=== PATIENT | male | born 1950 | race Caucasian/White ===

== ENCOUNTER → 2017-10-04 | Outpatient (CLI) | payer MEDICARE, BC, OTHER ==
[2015-08-07 10:50] VITALS: BP 120/72
[~2017-10-04] MED LIST: IBU800 M1 PO; LEVOTHROID0.125 MG PO; OMEPRAZOLE20 MG PO; PLAVIX 75MG TAB75 MG PO; TERAZOSIN HCL2 M1 PO; ULTRAM50 MG PO
== END ==
LOC: RAD 09:53
DX: R22.31 Localized swelling, mass and lump, right upper limb (principal)

== ENCOUNTER → 2019-02-06 | Outpatient (CLI) | payer MEDICARE, BC, OTHER ==
[2015-08-07 10:50] VITALS: BP 120/72
== END ==
LOC: RAD 14:41
DX: M79.641 Pain in right hand (principal)

== ENCOUNTER → 2019-06-08 | Outpatient (CLI) | payer MEDICARE, BC, OTHER ==
[2015-08-07 10:50] VITALS: BP 120/72
== END ==
LOC: RAD 16:04
DX: J18.9 Pneumonia, unspecified organism (principal); J44.9 Chronic obstructive pulmonary disease, unspecified

== ENCOUNTER 2021-01-08 14:03 | Outpatient (RCR) | payer OTHER | END 2021-04-08 | disposition still patient (30) | LOC: PT | DX: Z96.651 Presence of right artificial knee joint (principal) ==

== ENCOUNTER → 2021-03-17 | Outpatient (CLI) | payer OTHER | LOC: RAD 14:00 | DX: R59.0 Localized enlarged lymph nodes (principal) ==

== ENCOUNTER → 2021-04-09 | Outpatient (CLI) | payer OTHER | LOC: RAD 12:00 | DX: R59.0 Localized enlarged lymph nodes (principal) ==

== ENCOUNTER 2021-06-25 14:06 | Outpatient (RCR) | payer OTHER | END 2021-07-23 | disposition still patient (30) | LOC: PT | DX: M17.12 Unilateral primary osteoarthritis, left knee (principal); Z96.652 Presence of left artificial knee joint ==

== ENCOUNTER 2021-07-28 14:37 | Outpatient (RCR) | payer OTHER | END 2021-08-22 | disposition home or self-care (01) | LOC: PT | DX: M17.12 Unilateral primary osteoarthritis, left knee (principal); Z96.652 Presence of left artificial knee joint ==

== ENCOUNTER → 2021-10-09 | Outpatient (CLI) | payer OTHER ==
[2021-10-09 23:27] LABS: HEPATITIS B CORE AB TOTAL Negative (Negative)
[2021-10-10 16:08] LABS: TB GOLD INTERPRETATION.TB GOLD Indeterminate (Negative)
[2021-10-13 02:12] LABS: ANTI-CYC CITRULLINATED PEPT AB >2776.7 CU (0.0-19.9)
[2021-10-13 17:01] LABS: HEPATITIS B SURFACE ANTIGEN Negative (Negative)
== END ==
LOC: LAB 10:25
PROVIDERS: Student in an Organized Health Care Education/Training Program
DX: Z79.899 Other long term (current) drug therapy (principal)

== ENCOUNTER → 2021-10-23 | Outpatient (CLI) | payer OTHER | LOC: RAD 12:49 | DX: M85.842 Other specified disorders of bone density and structure, left hand (principal); M85.841 Other specified disorders of bone density and structure, right hand; M21.932 Unspecified acquired deformity of left forearm; M21.931 Unspecified acquired deformity of right forearm ==

== ENCOUNTER → 2021-11-05 | Outpatient (CLI) | payer OTHER ==
[2021-11-05 12:32] LABS: BASO # 0.04 K/mm3 (0.02-0.10); EOS # 0.28 K/mm3 (0.04-0.40); EOS % 4.7 % (0.0-4.0); HEMATOCRIT 34.5 % (42.0-52.0); HEMOGLOBIN 10.7 g/dL (13.5-18.0); LYMPH# 0.75 K/mm3 (1.50-4.00); MEAN CELL VOLUME 90 fl (78-100); MEAN CORPUSCULAR HEMOGLOBIN 28 pg (27-31); MEAN CORPUSCULAR HGB CONC 31 g/dL (33-37); MEAN PLATELET VOLUME 8.5 fl (7.4-10.4); MONO # 0.35 K/mm3 (0.20-0.80); NEU # 4.49 K/mm3 (1.40-6.50); PLATELET COUNT 248 K/mm3 (130-400); RED BLOOD COUNT 3.84 M/mm3 (4.20-5.60); RED CELL DISTRIBUTION WIDTH 17.6 % (11.5-14.5)
[2021-11-05 12:39] LABS: ALBUMIN 3.1 g/dL (3.4-4.8)
[2021-11-05 12:41] LABS: TOTAL PROTEIN 5.6 g/dL (6.2-8.1)
[2021-11-05 12:43] LABS: TOTAL BILIRUBIN 0.3 mg/dL (0.2-1.2)
[2021-11-05 12:47] LABS: DIRECT BILIRUBIN 0.2 mg/dL (0.0-0.5)
[2021-11-05 13:36] LABS: ERYTHROCYTE SEDIMENTATION RATE 44 mm/hr (0-20)
== END ==
LOC: LAB 12:11
PROVIDERS: Student in an Organized Health Care Education/Training Program
DX: M05.79 Rheumatoid arthritis with rheumatoid factor of multiple sites without organ or systems involvement (principal); Z79.899 Other long term (current) drug therapy

== ENCOUNTER 2022-01-01 16:04 | Emergency (ER) | payer OTHER ==
[~2022-01-01] VITALS: Ht 180.3 cm; Wt 95.5 kg
[~2022-01-01 16:04] MED LIST changes: +FOLIC ACID1 MG PO; +METHOTREXATE2.5 MG PO; +MYRBETRIQ50 MG PO; -OMEPRAZOLE20 MG PO; +OMEPRAZOLE40 MG PO; +PREDNISONE 5MG5 MG PO; +ULTRAM50 M1 PO; -ULTRAM50 MG PO
[2022-01-01 16:52] LABS: BASO # 0.02 K/mm3 (0.02-0.10); EOS # 0.67 K/mm3 (0.04-0.40); EOS % 7.9 % (0.0-4.0); HEMATOCRIT 31.7 % (42.0-52.0); HEMOGLOBIN 9.9 g/dL (13.5-18.0); LYMPH# 0.99 K/mm3 (1.50-4.00); MEAN CELL VOLUME 95 fl (78-100); MEAN CORPUSCULAR HEMOGLOBIN 30 pg (27-31); MEAN CORPUSCULAR HGB CONC 31 g/dL (33-37); MEAN PLATELET VOLUME 9.5 fl (7.4-10.4); MONO # 0.32 K/mm3 (0.20-0.80); NEU # 6.47 K/mm3 (1.40-6.50); PLATELET COUNT 295 K/mm3 (130-400); RED BLOOD COUNT 3.33 M/mm3 (4.20-5.60); RED CELL DISTRIBUTION WIDTH 19.6 % (11.5-14.5); WHITE BLOOD COUNT 8.5 K/mm3 (4.8-10.8)
[2022-01-01] MEDS ORDERED: FERROUS SU325 MG/TAB PO (16:53)
[2022-01-01] MEDS ORDERED: FLOMAX0.4 MG PO (16:55)
[2022-01-01 16:59] LABS: POTASSIUM 4.1 mmol/L (3.5-5.1)
[2022-01-01 17:02] LABS: TOTAL PROTEIN 5.7 g/dL (6.2-8.1)
[2022-01-01 17:03] LABS: TOTAL BILIRUBIN 0.8 mg/dL (0.2-1.2)
[2022-01-01 17:14] LABS: TROPONIN-I 0.054 ng/mL (<0.030)
[2022-01-01 18:22] LABS: D-DIMER 9.34 mg/L FEU (0.15-0.50)
[2022-01-01 19:14] LABS: PARTIAL THROMBOPLASTIN TIME 30.1 SECONDS (21.0-32.0); PROTHROMBIN TIME 11.9 SECONDS (9.0-12.0)
[2022-01-01 20:35] LABS: URINE APPEARANCE HAZY; URINE BILIRUBIN NEGATIVE (NEGATIVE); URINE BLOOD NEGATIVE (NEGATIVE); URINE COLOR YELLOW; URINE GLUCOSE NEGATIVE (NEGATIVE); URINE KETONE NEGATIVE (NEGATIVE); URINE NITRATE NEGATIVE (NEGATIVE); URINE PROTEIN(semi-quant) TRACE (NEGATIVE); URINE UROBILINOGEN NORMAL (NORMAL)
[2022-01-01 20:36] LABS: URINE LEUKOCYTE ESTERASE TRACE (NEGATIVE)
[2022-01-01 20:55] VITALS: BP 109/79
== END 2022-01-01 20:55 | disposition short-term general hospital (02) ==
LOC: ED 16:04
PROVIDERS: Nurse Practitioner; Physician Assistant
DX: I48.92 Unspecified atrial flutter (principal); N17.9 Acute kidney failure, unspecified; J18.9 Pneumonia, unspecified organism; R09.02 Hypoxemia; R77.8 Other specified abnormalities of plasma proteins; R79.1 Abnormal coagulation profile; Z20.822 Contact with and (suspected) exposure to COVID-19
CPT/HCPCS: J1644; J2543; J7030

== ENCOUNTER 2022-07-07 09:43 | Emergency (ER) | payer OTHER ==
[~2022-07-07] VITALS: Ht 182.9 cm; Wt 102.3 kg
[~2022-07-07 09:43] MED LIST changes: +ARAVA10 M1 PO; +CORDARONE200 MG/TAB PO; +FERROUS SU325 MG/TAB PO; +FLOMAX0.4 MG PO; +MORGIDOX 1X100100 MG PO; +PREDNISONE20 M1 PO; +XARELTO20 MG PO
[2022-07-07 11:02] LABS: HEMATOCRIT 35.4 % (42.0-52.0); HEMOGLOBIN 11.1 g/dL (13.5-18.0); MEAN CELL VOLUME 96 fl (78-100); MEAN CORPUSCULAR HEMOGLOBIN 30 pg (27-31); MEAN CORPUSCULAR HGB CONC 31 g/dL (33-37); MEAN PLATELET VOLUME 9.2 fl (7.4-10.4); PLATELET COUNT 287 K/mm3 (130-400); RED BLOOD COUNT 3.68 M/mm3 (4.20-5.60); RED CELL DISTRIBUTION WIDTH 13.8 % (11.5-14.5); WHITE BLOOD COUNT 8.5 K/mm3 (4.8-10.8)
[2022-07-07 11:12] LABS: ALBUMIN 2.8 g/dL (3.4-4.8); POTASSIUM 3.4 mmol/L (3.5-5.1)
[2022-07-07 11:13] LABS: CALCIUM 8.8 mg/dL (8.3-10.5)
[2022-07-07 11:16] LABS: TOTAL BILIRUBIN 0.6 mg/dL (0.2-1.2)
[2022-07-07 11:27] LABS: TROPONIN-I 0.058 ng/mL (<0.030)
[2022-07-07 11:28] LABS: BAND 5 % (0-10); LYMPHOCYTE 7 % (20-51); MONOCYTE 15 % (3-10); NEUTROPHILS 65 % (42-75)
[2022-07-07 11:45] LABS: D-DIMER 1.4 mg/L FEU (0.15-0.50)
[2022-07-07 17:15] VITALS: BP 136/71
[2022-07-07] MEDS ORDERED: PREDNISONE20 MG PO (17:15)
== END 2022-07-07 17:40 | disposition left against medical advice (07) ==
LOC: ED 09:43
PROVIDERS: Family Medicine
DX: J44.1 Chronic obstructive pulmonary disease with (acute) exacerbation (principal); N17.9 Acute kidney failure, unspecified; I21.4 Non-ST elevation (NSTEMI) myocardial infarction; R09.02 Hypoxemia; R79.89 Other specified abnormal findings of blood chemistry; I48.91 Unspecified atrial fibrillation; E87.6 Hypokalemia; T45.516A Underdosing of anticoagulants, initial encounter; Z91.198 Patient's noncompliance with other medical treatment and regimen for other reason; Z79.01 Long term (current) use of anticoagulants; Z20.822 Contact with and (suspected) exposure to COVID-19; Z99.81 Dependence on supplemental oxygen
CPT/HCPCS: J0696; J2930; J7030; Q9967